=== PATIENT | female | born 1995 | race Two or more races ===

== ENCOUNTER 2024-06-06 07:00 | Day surgery (SDC) | payer OTHER ==
[~2024-06-06] VITALS: Ht 162.6 cm; Wt 86.2 kg
[2024-06-06] VITALS (7 sets, daily range): BP systolic 100–122; BP diastolic 61–83; PULSE 69–83; RESP 12–19; O2SAT 96–98
[~2024-06-06 07:00] MED LIST: MEDR150I23 IM; OMEP20TA PO; PROP1TAB53 PO; TRAM50TA2 PO; ZOLP12.52 PO
[2024-06-06] MEDS ORDERED: IODIXANOL 320MG/ML 100ML BTL IV ONE ×2 (08:05→09:43)
[2024-06-06] MEDS ORDERED: HEPARIN IN NS 1000Units/500mL 1,500 ML ONE (08:06)
[2024-06-06] MEDS ORDERED: HEPARIN SODIUM (PORCINE) 5000 UNITS/ML 1ML VIAL ONE (09:41)
[2024-06-06] MEDS ORDERED: VERAPAMIL 2.5MG/ML INJ 2ML VIAL IV ONE (09:42)
[2024-06-06] MEDS ORDERED: MIDAZOLAM HCL 2MG/2ML 2ml VIAL (1mg/ml) ONE (09:42)
[2024-06-06] MEDS ORDERED: fentaNYL CITRATE 100 MCG/2 ML VL ONE (09:42)
[2024-06-06] MEDS ORDERED: LIDOCAINE 2%HCL (LOCAL ANESTH.) INJ 20ML MDV ONE (09:45)
== END 2024-06-06 12:30 | disposition home or self-care (01) ==
LOC: CATH 07:00
PROVIDERS: ATTEND Internal Medicine
DX: R07.9 Chest pain, unspecified (principal); Z88.6 Allergy status to analgesic agent; Z88.0 Allergy status to penicillin; Z88.8 Allergy status to other drugs, medicaments and biological substances; Z87.891 Personal history of nicotine dependence; Z79.899 Other long term (current) drug therapy; Z98.890 Other specified postprocedural states
CPT/HCPCS: 36415; 84702; 93458; C1887; C1894; J1644; J2250; J3010; J7030; Q9967; 99152